=== PATIENT | female | born 1995 | race Caucasian/White ===

== ENCOUNTER 2023-03-03 21:36 | Emergency (ER) | payer OTHER ==
[~2023-03-03] VITALS: Ht 154.9 cm; Wt 83.9 kg
[~2023-03-03 21:36] MED LIST: PRENATAL TABLE1 EAC1 PO
[2023-03-03 23:34] LABS: HEMATOCRIT 40.1 % (36.0-45.00); HEMOGLOBIN 13.9 g/dL (12.0-15.00); MEAN CORPUSCULAR HEMOGLOBIN 33.3 pg (27.00-32.0); MEAN CORPUSCULAR HGB CONC 34.7 g/dl (32.0-36.0); PLATELET COUNT 212 K/uL (150-450); RED BLOOD COUNT 4.18 M/uL (4.00-6.00); RED CELL DISTRIBUTION WIDTH 12.7 % (11.5-14.5)
[2023-03-03 23:55] LABS: ALBUMIN 3.8 gm/dL (3.4-5.0); ALKALINE PHOSPHATASE 82 U/L (50-136); ALT/SGPT 21 U/L (12-78); AMYLASE 45 U/L (25-115); ANION GAP 9 (10.0-20.0); AST/SGOT 16 U/L (15-37); BILIRUBIN TOTAL 0.67 mg/dL (0.3-1.2); BLOOD UREA NITROGEN 8 mg/dL (7-18); BUN CREA RATIO 12 (7.0-25.0); CALCIUM 9.7 mg/dL (8.5-10.1); CARBON DIOXIDE 29 mEq/L (21-32); CHLORIDE 102 mmol/L (98-107); CREATININE SERUM 0.66 mg/dL (0.55-1.02); GFR 108.25; GLOBULINA 4.1 G/DL (2.4-3.5); GLUCOSE FASTING 106 mg/dL (65-100); LIPASE 19 U/L (13-75); OSMOLALITY SERUM 271 MOSM/KG (275-295); POTASSIUM 3.66 mEq/L (3.5-5.1); SODIUM 136 mmol/L (136-145); TOTAL PROTEIN 7.9 gm/dL (6.4-8.2)
[2023-03-04 00:04] LABS: HCG QUANTITATIVE < 1 mUI/mL (1-3)
== END 2023-03-04 01:22 | disposition home or self-care (01) ==
LOC: ER 21:36
PROVIDERS: General Practice
DX: K52.89 Other specified noninfective gastroenteritis and colitis (principal); Z90.13 Acquired absence of bilateral breasts and nipples; Z20.822 Contact with and (suspected) exposure to COVID-19